=== PATIENT | female | born 1945 | race Two or more races ===

== ENCOUNTER 2018-12-04 12:44 | Emergency (ER) | payer MEDICARE, MEDICAID ==
[~2018-12-04] VITALS: Ht 157.5 cm; Wt 73.0 kg
[2018-12-04] MEDS ORDERED: IPRATROPIUM BROMIDE (0.02%) 0.5MG/2.5ML NEB HHN STA ×2 (13:58→19:54)
[2018-12-04] MEDS ORDERED: METHYLPREDNISOLONE SOD SUCC 125 MG/2 ML VIAL IV STA (13:58)
[2018-12-04] MEDS ORDERED: ALBUTEROL (0.083%) 2.5MG/3ML NEB HHN STA (13:58)
[2018-12-04 14:33] LABS: BASOPHILS % 1.4 % (0.0-2.0); EOSINOPHILS % 2.6 % (0.0-5.0); HEMATOCRIT. 33.7 % (36.0-48.0); HEMOGLOBIN. 10.7 g/dL (12.0-16.0); LYMPHOCYTES % 16.7 % (20.0-50.0); MEAN CORPUSCULAR HEMOGLOBIN 23.5 pg (28.0-32.0); MONOCYTES % 9.5 % (2.0-8.0); NEUTROPHILS % 69.8 % (40.0-76.0); PLATELET 525 x1000/uL (130-400); RED BLOOD CELL COUNT 4.55 mill/uL (4.2-5.4); RED CELL DISTRIBUTION WIDTH 18.8 % (11.6-14.6)
[2018-12-04 14:39] LABS: CHLORIDE 98 mEq/L (98-107)
[2018-12-04] MEDS ORDERED: FUROSEMIDE 20MG/2ML VIAL IVP ONE (18:00)
[2018-12-04] MEDS ORDERED: ALBUTEROL (0.083%) 2.5MG/3ML NEB HHN SCH (20:00)
[2018-12-04] MEDS ORDERED: ONDANSETRON HCL 4MG/2ML INJ IV ONE (23:15)
[2018-12-04] MEDS ORDERED: MORPHINE SULFATE 2 MG/ML CPJ (NOT FOR IM USE) IV ONE (23:30)
[2018-12-04] MEDS ORDERED: MORPHINE SULFATE 4 MG/ML CPJ (NOT FOR IM USE) IV NR (23:45)
[2018-12-05 00:32] VITALS: BP 131/71
== END 2018-12-05 00:48 | disposition short-term general hospital (02) ==
LOC: ER 12:54 → EDBEDREQ 16:47 → EDBEDREQTM 17:29 → CANBEDREQ 17:41 → ER 12-05 00:48
DX: J44.1 Chronic obstructive pulmonary disease with (acute) exacerbation (principal); I11.0 Hypertensive heart disease with heart failure; I50.9 Heart failure, unspecified; E11.9 Type 2 diabetes mellitus without complications
CPT/HCPCS: 36415; 71045; 80053; 83880; 84484; 85025; 87804; 93005; 94640; 94660; 96374; 96375; 99285; J1940; J2270; J2405; J2930; J7611

== ENCOUNTER 2019-12-03 17:58 | Emergency (ER) | payer MEDICARE, MEDICAID ==
[~2019-12-03] VITALS: Ht 157.5 cm; Wt 70.0 kg
[2019-12-03 18:00] VITALS: BP 125/80
== END 2019-12-03 20:31 | disposition left against medical advice (07) ==
LOC: ER 17:58
DX: R06.03 Acute respiratory distress (principal); Z53.21 Procedure and treatment not carried out due to patient leaving prior to being seen by health care provider